=== PATIENT | female | born 2000 | race Caucasian/White ===

== ENCOUNTER 2022-02-11 10:30 | Emergency (ER) | payer BC, SELFPAY ==
--- NOTE | ~2022-02-11 | XR_ITS ---
EXAMINATION: XR ANKLE, RIGHT CLINICAL INFORMATION: Right ankle pain status post fall. COMPARISON: None TECHNIQUE: AP, lateral, and mortise views of the right ankle. FINDINGS: The bones and soft tissues are normal. No fracture. Alignment is anatomic. Joint spaces are maintained. No joint effusion. XR/XR ankle RT 2V IMPRESSION: Unremarkable right ankle.
[2022-02-11 10:56] VITALS: BP 115/55; PULSE 64; RESP 18; TEMP 36.9; O2SAT 99; BMI 26.5
--- NOTE | 2022-02-11 11:33 | ED_ITS ---
HPI - Extremity Injury (Lower) General Chief Complaint: Extremity Injury, Lower Stated Complaint: r ankle inj Time Seen by Provider: 02/11/22 11:33 Source: patient Mode of arrival: ambulatory Limitations: no limitations History of Present Illness HPI Narrative: 21 y/o female presents to the ER with right ankle pain s/p twisting injury yesterday. She states she was running on a obstacle course when she fell and t wisted her right ankle. She had minimal pain at the time but as time went on she had increased pain and swelling along the medial, anterior and lateral aspects of the ankle. She developed inability to put weight on it and has been using crutches. She also has been using a [id number] ankle brace for compression. She has been taking ibuprofen and icing the area as well as elevating it. She came to the ER today to make sure that nothing is broken. complaint: ankle injury Onset (ago): day(s) (1) Injury: Right: ankle Type of Injury: unknown Place: street/outdoors Severity: moderate Relieving factors: NSAID, cold therapy, immobilization and rest Exacerbating factors: weight bearing, movement and palpation Context: fall and running Associated symptoms: unable to bear weight Other symptoms: none Treatments prior to arrival: cold therapy and bandage Related Data Allergies Allergy/AdvReac Type Severity Reaction Status Date / Time No Known Allergies Allergy Verified 02/11/22 10:59 Review of Systems Review of Systems: Constitutional: No Fever, No Chills Cardiovascular: No Chest Pain, No SOB Gastrointestinal: No Nausea, No Vomiting Musculoskeletal: + joint pain, No Myalgias Skin: No Skin Lesions, No rash Neuro: No Weakness, No Numbness Heme/Lymph: + Bruising, No Lymphadenopathy PMFSH Past Medical History Medical History (Updated 02/11/22 @ 11:34 by [facility]) Hypotension Migraine Social History Social History Advance Directives: No Advance Directives Information Provided: Yes Patient : No Physical Exam Vital Signs: Vital Signs: Last Vital Signs Temp 98.5 F 02/11/22 10:56 Pulse 64 02/11/22 10:56 Resp 18 02/11/22 10:56 BP 115/55 L 02/11/22 10:56 Pulse Ox 99 02/11/22 10:56 BMI result Body Mass Index 26.5 Appearance: Alert. Oriented X3. No acute distress. HEENT: normal inspection CVS: Normal heart rate and rhythm. Pulses normal. Respiratory: No respiratory distress. Skin: Skin warm and dry. Normal skin color. Normal skin turgor. No rashes. Extremities: Right ankle with mild generalized swelling to the entire ankle joint, normal range of motion. Tenderness most notable to the medial aspect, below the medial malleolus with minimal swelling. No ecchymosis or point tenderness. Neurovascularly intact distally. Gait not tested due to pain. Neuro: Oriented X 3. No motor deficit. No sensory deficit. Course Course Course Narrative: 21-year-old female presents to the ER for evaluation of right ankle injury after a twisting event yesterday. She has minimal swelling on exam but is tender in the medial aspect of the ankle joint. X-ray today showed no acute bony abnormality, no fracture or dislocation. Supportive care and management of ankle sprain discussed with patient. She is requesting an Aircast for extra support. She has crutches and Jacob/ankle brace. She is stable for discharge home with supportive care. Discharge Plan Discharge Clinical Impression: Ankle sprain and strain Patient Disposition: Home, Self-Care Instructions: Ankle Sprain (DC) Additional Instructions: Your x-ray today was normal. Rest your ankle and elevate your foot when possible. Recommend JACOB wrap for support and compression. Use ice several times per day for the next 48 hours. You may bear weight as tolerated. If pain is too severe, use crutches until better. Take Motrin and/or Tylenol as needed for pain. Follow up with your doctor as needed. Stand Alone Forms: Work/School Release Interventions: ED Discharge Assessment Last Done: 02/11/22 11:44 Discharge Date/Time: 02/11/22 11:45
== END 2022-02-11 11:45 | disposition home or self-care (01) ==
PROVIDERS: Emergency Provider Emergency Medicine
DX: S93.401A Sprain of unspecified ligament of right ankle, initial encounter (principal); S96.911A Strain of unspecified muscle and tendon at ankle and foot level, right foot, initial encounter; X50.1XXA Overexertion from prolonged static or awkward postures, initial encounter; Y93.02 Activity, running; Y92.410 Unspecified street and highway as the place of occurrence of the external cause; Y99.9 Unspecified external cause status
CPT/HCPCS: 73600; 99283; 99284